=== PATIENT | female | born 1955 | race Caucasian/White ===

== ENCOUNTER 2016-10-09 07:06 | Emergency (ER) | payer OTHER ==
[~2016-10-09] VITALS: Ht 175.3 cm; Wt 104.5 kg
[~2016-10-09 07:06] MED LIST: ASPI-825 PO; ESOM40CA PO; ESTR-7 PO; FURO40TA5 PO; LORA10TA7 PO; METO-323 PO; PARO30TA60 PO; POTA10TA14 PO; SIMV20TA6 PO
[2016-10-09 07:27] VITALS: BP 132/81
[2016-10-09] MEDS ORDERED: ACET-2247 PO (07:32)
== END 2016-10-09 08:15 | disposition home or self-care (01) ==
LOC: EMS 07:08
DX: H60.92 Unspecified otitis externa, left ear (principal); H66.92 Otitis media, unspecified, left ear; T70.0XXA Otitic barotrauma, initial encounter; I10 Essential (primary) hypertension; E78.00 Pure hypercholesterolemia, unspecified; Z91.018 Allergy to other foods; X58.XXXA Exposure to other specified factors, initial encounter
CPT/HCPCS: 99283